=== PATIENT | female | born 1945 | race Caucasian/White ===

== ENCOUNTER → 2023-03-11 | Outpatient (CLI) | payer MEDICARE, OTHER, SELFPAY ==
--- NOTE | 2023-03-11 08:28 | MRI_ITS ---
STUDY: MRI CERVICAL SPINE WITHOUT CONTRAST REASON FOR EXAM: Female, 77 years old. burning behind right shoulder TECHNIQUE: Standardized fat and water weighted pulse sequences were obtained in the sagittal and axial planes. COMPARISON: None FINDINGS: Normal foramen magnum and brainstem-cervical cord junction. Normal craniovertebral junction. Normal anterior atlantoaxial articulation. Normal odontoid process. There is reversal of the normal cervical lordosis. Interspinous hardware and postoperative susceptibility signal is present at the C5-C6 and C6-C7 levels. Correlate with cervical spine x-ray or CT for better visualization. C2-3: Diffuse disc desiccation with mild posterior disc space narrowing and slight annular bulging. Normal central canal. Mild bilateral foraminal stenosis secondary to facet joint hypertrophy. C3-4: Diffuse disc desiccation with mild to moderate disc space narrowing and slight posterior annular bulging contributing to mild central canal stenosis. Moderate left foraminal stenosis with nerve root compression due to significant facet joint hypertrophy. Normal right neural foramen. Normal central canal. 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 C4-5: Diffuse disc desiccation with mild to moderate disc space narrowing and slight posterior annular bulging. Normal central canal. Moderate left foraminal stenosis secondary to uncovertebral facet joint hypertrophy with nerve root impingement. Mild right foraminal stenosis. C5-6: Moderate to severe disc space narrowing/partial ankylosis across the disc space. No posterior disc herniation or bulging. Normal central canal. Mild bilateral foraminal stenosis. Moderate left facet joint hypertrophy. C6-7: Diffuse disc desiccation with mild posterior disc space narrowing and shallow midline disc protrusion contributing to mild thecal sac mass effect. Normal central canal and right neural foramen. Severe left foraminal stenosis with nerve root compression due to uncovertebral and facet joint hypertrophy. C7-T1: Normal severe disc space narrowing with a diffuse disc spur complex contributing to mild central canal stenosis. Moderate to severe left foraminal stenosis with nerve root compression secondary to uncovertebral facet joint hypertrophy. Moderate right foraminal stenosis with nerve root compression. Normal cervical cord. There is no demonstrated cervical cord syrinx cavity. Normal visualized soft tissue structures. MRI/Spine Cervical (Routine) IMPRESSION: Multilevel degenerative changes, as described above. Electronically Signed: Sushil Bright MD at 11:46 EDT ,
== END | disposition home or self-care (01) ==
LOC: MRI 08:21
PROVIDERS: PCP Internal Medicine Infectious Disease; Referring Provider Orthopaedic Surgery; Visit Provider Orthopaedic Surgery
DX: M50.30 Other cervical disc degeneration, unspecified cervical region (principal)
CPT/HCPCS: 72141